=== PATIENT | male | born 2005 | race Caucasian/White ===

== ENCOUNTER 2023-02-09 11:51 | Emergency (ER) | payer OTHER ==
[~2023-02-09] VITALS: Ht 167.6 cm; Wt 59.4 kg
[2023-02-09 12:27] VITALS: BP 118/73; PULSE 84; RESP 18; TEMP 98; O2SAT 98
[2023-02-09 13:10] VITALS: O2SAT 98
[2023-02-09 13:50] LABS: APPEARANCE,URINE CLEAR (CLEAR); BILIRUBIN,URINE 1+ (NEGATIVE); BLOOD, URINE NEGATIVE (NEGATIVE); COLOR,URINE YELLOW (YELLOW); NITRITE, URINE NEGATIVE (NEGATIVE); PROTEIN,URINE TRACE (NEGATIVE); UGLUCOSE NEGATIVE (NEGATIVE); UROBILINOGEN,URINE 0.2 EU/dL (0.2 - 1)
[2023-02-09 13:52] LABS: ICTOTEST NEGATIVE (NEGATIVE)
[2023-02-09 13:55] LABS: LEUKOCYTE ESTERASE ,URINE 1+ (NEGATIVE); RBC,URINE 0-5 /HPF (0-5)
[2023-02-09 13:56] LABS: BACTERIA,URINE OCCASSIONAL /HPF (None Seen); SQUAMOUS EPITHELIAL CELL,UR 0-3 (FEW) /LPF (0-3 (FEW)); WBC,URINE 16-25 (MOD) /HPF (0-5)
[2023-02-09] MEDS ORDERED: IBUP-1842 PO (15:05)
[2023-02-09] MEDS ORDERED: cefTRIAXone 1,000 MG in LIDOCAINE MPF 1% 2.1 ML IM ONE (15:05)
[2023-02-09] MEDS ORDERED: VIB100 PO (15:05)
[2023-02-09] MEDS ORDERED: KETOROLAC 30 MG/ML VIAL IM ONE (15:05)
[2023-02-09 15:06] VITALS: BP 116/73; PULSE 84; RESP 18; TEMP 98; O2SAT 98
[2023-02-09] MEDS ORDERED: cefTRIAXone 1,000 MG VIAL ONE (15:09)
[2023-02-09] MEDS ORDERED: LIDOCAINE MPF 1% 5 ML ONE (15:10)
== END 2023-02-09 15:29 | disposition home or self-care (01) ==
LOC: MED 11:51
DX: N50.812 Left testicular pain (principal); N39.0 Urinary tract infection, site not specified; N45.3 Epididymo-orchitis; Z79.899 Other long term (current) drug therapy
CPT/HCPCS: 76870; 81001; 87086; 87491; 96372; 99285; J0696; J1885; J2001; Q0092